=== PATIENT | male | born 1970 | race Caucasian/White ===

== ENCOUNTER 2020-11-19 16:09 | Outpatient (CLI) | payer OTHER, SELFPAY ==
--- NOTE | 2020-11-19 16:33 | XR_ITS ---
WS: [id number] Chest 2 views, 11/19/2020 Clinical Data: Shortness of breath Comparison: PA and lateral chest, 09/02/2014. Findings: No nodules, masses or effusions are seen. The heart is normal. The pulmonary vascularity is not increased. No pneumonia or pneumothorax is seen. XR/XR chest 2V* [id number] Impression: Negative chest.
[2020-11-19 17:01] LABS: Basophils # 0.1 10^3/uL (0.0-0.1); Eosinophils # 0.3 10^3/uL (0.0-0.8); Eosinophils % 3.4 %; Hematocrit 45.4 % (42.0-52.0); Hemoglobin 14.9 g/dL (11.7-16.6); Lymphocytes # 2.1 10^3/uL (0.8-4.8); Mean Corpuscular HGB Conc 32.8 g/dL (30.0-36.0); Mean Corpuscular Hemoglobin 28.5 pg (28.0-34.0); Mean Platelet Volume 10.1 fL (7.4-10.4); Monocytes % 10.3 %; Neutrophils # 6.21 10^3/uL (1.8-7.7); Neutrophils % 63.4 %; Nucleated Red Blood Cells % 0 %; Platelet Count 280 10^3/cmm (130-400); Red Blood Count 5.22 10^6/uL (4.1-5.3); Red Cell Distribution Width 13.2 % (12.1-15.1); White Blood Count 9.8 10^3/uL (4.0-10.0)
[2020-11-21 17:33] LABS: Alternaria Alternata (M6) Ige <0.10 kU/L; Alternaria Class 0; Bermuda Class 0; Bermuda Grass (G2) Ige <0.10 kU/L; Cat Dander (E1) Ige <0.10 kU/L; Cat Dander Class 0; Common Ragweed (Short) (W1) Ig <0.10 kU/L; D. Farinae Class 0; Dermatophagoides Class 0; Dermatophagoides Farinae (D2) <0.10 kU/L; Dermatophagoides Pteronyssinus <0.10 kU/L; Dog Dander (E5) Ige <0.10 kU/L; Dog Dander Class 0; Elm (T8) Ige <0.10 kU/L; Elm Class 0; English Plantain (W9) Ige <0.10 kU/L; English Plantain Class 0; House Dust (Greer) (H1) Ige <0.10 kU/L; House Dust (Hollister- Stier) <0.10 kU/L; House Dust Class 0; Immunoglobulin E 53 kU/L (<OR=114); Immunoglobulin E 57 kU/L (<OR=114); Johnson Grass (G10) Ige <0.10 kU/L; Johnson Grass Cl 0; June Grass Class 0; June Grass(Kentucky Blue) (G8) <0.10 kU/L; Lamb'S Quarters (Goose Foot) <0.10 kU/L; Lamb'S Quarters Class 0; Maple (Box Elder) (T1) Ige <0.10 kU/L; Maple Class 0; Meadow Fescue (G4) Ige <0.10 kU/L; Meadow Fescue Class 0; Mucor Racemosus Class 0; Oak (T7) Ige <0.10 kU/L; Oak Class 0; Orchard Grass (Cocksfoot) (G3) <0.10 kU/L; Penicillium Class 0; Penicillium Notatum (M1) Ige <0.10 kU/L; Perennial Rye Grass (G5) Ige <0.10 kU/L; Perennial Rye Grass Class 0; Ragweeed Class 0; Rough Marsh Elder (W16) Ige <0.10 kU/L; Rough Marsh Elder Class 0; Sweet Vernal Class 0; Sweet Vernal Grass (G1) Ige <0.10 kU/L; Timothy Grass (G6) Ige <0.10 kU/L; Timothy Grass Class 0
[2020-11-27 09:22] LABS: Aspergillus Fumigatus, Igg Ab, 15.2 mg/L (<=102)
== END 2020-11-19 16:10 | disposition home or self-care (01) ==
PROVIDERS: PCP Nurse Practitioner Family; Visit Provider Internal Medicine Critical Care Medicine
DX: R06.02 Shortness of breath (principal)
CPT/HCPCS: 36415; 71046; 82785; 85025; 86003

== ENCOUNTER → 2020-11-25 11:20 | Outpatient (BNVA) | payer OTHER, SELFPAY | PROVIDERS: PCP Nurse Practitioner Family; Visit Provider Internal Medicine Critical Care Medicine | DX: J45.909 Unspecified asthma, uncomplicated (principal); Z20.822 Contact with and (suspected) exposure to COVID-19 | CPT/HCPCS: 87635 ==

== ENCOUNTER 2020-11-27 06:49 | Outpatient (CLI) | payer OTHER, SELFPAY ==
--- NOTE | 2020-11-27 08:59 | PFTS_ITS ---
Date of Study:11/27/20 Date of Dictation: 11/28/2020 MECHANICS: Pre bronchodilator Forced vital capacity (FVC) is normal.. Pre bronchodilator Forced expiratory volume in one second (FEV1) is normal. FEV1/FVC is normal. Postbronchodilator study not performed FLOW VOLUME LOOP:normal LUNG VOLUMES: Total lung capacity (TLC) is normal. Residual volume (RV) is mildly reduced 79% DIFFUSING CAPACITY FOR CARBON MONOXIDE: normal . INTERPRETATION: The pre bronchodilator spirometry is normal and no postbronchodilator study to check for airway responsiveness. There is mild restriction on lung volumes. There is normal gas transfer. Clinical correlation recommended. MTDD
== END 2020-11-27 06:50 | disposition home or self-care (01) ==
PROVIDERS: PCP Nurse Practitioner Family; Visit Provider Internal Medicine Critical Care Medicine
DX: J45.909 Unspecified asthma, uncomplicated (principal)
CPT/HCPCS: 94010; 94726; 94729

== ENCOUNTER → 2021-04-20 13:27 | Outpatient (BNVA) | payer OTHER, SELFPAY | PROVIDERS: PCP Nurse Practitioner Family; Referring Provider Nurse Practitioner; Visit Provider Specialist | DX: M77.8 Other enthesopathies, not elsewhere classified (principal); S60.551A Superficial foreign body of right hand, initial encounter; X58.XXXA Exposure to other specified factors, initial encounter | CPT/HCPCS: 73130 ==

== ENCOUNTER 2023-03-16 05:49 | Day surgery (SDC) | payer OTHER, SELFPAY ==
[2023-03-16 06:11] VITALS: BMI 43.7
[2023-03-16 06:19] VITALS: BP 161/127; PULSE 105; RESP 18; TEMP 36.6; O2SAT 94
[2023-03-16] MEDS: sodium chloride 0.9% 1,000 ML 30 ML IV (06:32)
[2023-03-16 06:36] LABS: Glucose Point of Care 207 mg/dL (70-110)
--- NOTE | 2023-03-16 06:53 | P.ANESASSM_ITS ---
Pre-Anesthetic Assessment Height/Weight: Height 1.91 m Weight 158.757 kg Temp Pulse Resp BP Pulse Ox O2 Del Method 97.8 F 105 H 18 161/127 94 Room Air 03/16/23 06:19 03/16/23 06:19 03/16/23 06:19 03/16/23 06:19 03/16/23 06:19 03/16/23 06:19 Preop Diagnosis: screening Operation Date: 03/16/23 07:00 Proposed Procedures p Colonoscopy 71252,Z12.11(Not Applicable) - Roge Toledo, DO Was Beta Kimberley taken within 24 hours: N/A Was Clonidine taken within 24 hours: N/A Last intake: Intake Last Liquid Date 03/15/23 Last Liquid Time 22:00 Last Solid Date 03/14/23 Last Solid Time 20:00 Social No alcohol and No tobacco Exam alert, oriented x 3, clear to auscultation bilaterally and regular rate & rhythm Airway Submandibular: within normal limits Cervical ROM: within normal limits Mallampati: Class II Comments: Comments: very poor dentition History/ROS No significant history except as noted and No significant complaints Pulmonary Sleep Apnea CV/HEM Hypertension None reported Hepatic None reported GI Gastroesophageal Reflux Disease Metabolic Diabetes Mellitus and Morbid Obesity [facility] [place] None reported Neuropsych None reported Anesthetic Plan ASA status: 3 Anesthesia: Anesthesia Evaluation and MAC Risk of > 500 ml blood loss (7ml/kg in children): Yes, adequate IV access and fluids planned Medications/Allergies Home Medications Medication Instructions Recorded Confirmed Last Taken Type meloxicam 15 mg tablet 15 mg PO DAILY 07/25/19 03/16/23 03/14/23 History metformin 500 mg tablet,extended 1,000 mg PO BEDTIME 07/25/19 03/14/23 03/14/23 History release 24 hr (Glucophage XR) tizanidine 4 mg capsule (Zanaflex) 4 mg PO Q4H PRN Spasms 07/25/19 03/14/23 History hydrochlorothiazide 25 mg tablet 25 mg PO DAILY 11/18/20 03/16/23 03/15/23 History magnesium oxide 800 mg PO DAILY 11/18/20 03/16/23 03/15/23 History albuterol sulfate 90 mcg/actuation 2 puff inhalation Q6H PRN 02/17/21 03/16/23 Unknown Rx aerosol inhaler (ProAir HFA) shortness of breath or wheezing #8.5 grams montelukast 10 mg tablet 10 mg PO DAILY #90 tabs 02/17/21 03/16/23 03/15/23 Rx (Singulair) garlic 500 mg capsule 500 mg PO DAILY 04/20/21 03/16/23 03/15/23 History fluticasone propionate 50 1 spray intranasal BID 30 days #16 12/04/21 03/16/23 Unknown Rx mcg/actuation nasal grams spray,suspension (Flonase Allergy Relief) fluticasone 250 mcg-salmeterol 50 1 inh inhalation BID 30 days #60 ea 12/17/21 03/16/23 Unknown Rx mcg/dose blistr powdr for inhalation (Advair Diskus) amlodipine 5 mg tablet 5 mg PO DAILY 03/14/23 03/16/23 03/16/23 History glyburide 2.5 mg tablet 2.5 mg PO DAILY 03/14/23 03/16/23 03/15/23 History lisinopril 40 mg tablet 40 mg PO DAILY 03/14/23 03/16/23 03/15/23 History naproxen 500 mg tablet 500 mg PO BID PRN Pain 03/14/23 03/16/23 03/14/23 History semaglutide 1 mg/dose (4 mg/3 mL) 1 mg SUBCUT .WEEKLY 03/14/23 03/14/23 02/24/23 History subcutaneous pen injector (Ozempic) Allergies Allergy/AdvReac Type Severity Reaction Status Date / Time No Known Allergies Allergy Verified 03/14/23 14:39 Current Medications Generic Name Dose Route Start Last Admin Trade Name Freq PRN Reason Stop Dose Admin Sodium Chloride 1,000 mls @ 30 mls/hr 03/16/23 06:15 03/16/23 06:32 Sodium Chloride 0.9% IV 03/17/23 06:14 30 mls/hr .Q24H MALICK Administration PFSH Anesthesia Medical History 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 Family/Other Alpha 1-antitrypsin PiMS phenotype Social History Smoking and tobacco/nicotine status: never used tobacco/nicotine Alcohol intake: current Alcohol intake frequency: holidays/special occasions only Substance/Drug Use: never Lives independently: Yes Household members: spouse Marital status: Current occupational status: employed Do you think of yourself as: Straight/Heterosexual Current gender identity: Male Data Anesthesia Cardiac Studies: No Data to Display
--- NOTE | 2023-03-16 06:56 | PM.HP ---
Providers/Chief Complaint Primary Care Provider: KELI Roth Chief Complaint: Z12.11 History of Present Illness Travis Dozier JR is a 52 year old male Review of Systems General: Reports: 10 or more systems reviewed and unremarkable except in HPI and below Medications/Allergies Home Medications Medication Instructions Recorded Confirmed Last Taken Type meloxicam 15 mg tablet 15 mg PO DAILY 07/25/19 03/16/23 03/14/23 History metformin 500 mg tablet,extended 1,000 mg PO BEDTIME 07/25/19 03/14/23 03/14/23 History release 24 hr (Glucophage XR) tizanidine 4 mg capsule (Zanaflex) 4 mg PO Q4H PRN Spasms 07/25/19 03/14/23 03/14/23 History hydrochlorothiazide 25 mg tablet 25 mg PO DAILY 11/18/20 03/16/23 03/15/23 History magnesium oxide 800 mg PO DAILY 11/18/20 03/16/23 03/15/23 History albuterol sulfate 90 mcg/actuation 2 puff inhalation Q6H PRN 02/17/21 03/16/23 Unknown Rx aerosol inhaler (ProAir HFA) shortness of breath or wheezing #8.5 grams montelukast 10 mg tablet 10 mg PO DAILY #90 tabs 02/17/21 03/16/23 03/15/23 Rx (Singulair) garlic 500 mg capsule 500 mg PO DAILY 04/20/21 03/16/23 03/15/23 History fluticasone propionate 50 1 spray intranasal BID 30 days #16 12/04/21 03/16/23 Unknown Rx mcg/actuation nasal grams spray,suspension (Flonase Allergy Relief) fluticasone 250 mcg-salmeterol 50 1 inh inhalation BID 30 days #60 ea 12/17/21 03/16/23 Unknown Rx mcg/dose blistr powdr for inhalation (Advair Diskus) amlodipine 5 mg tablet 5 mg PO DAILY 03/14/23 03/16/23 03/16/23 History glyburide 2.5 mg tablet 2.5 mg PO DAILY 03/14/23 03/16/23 03/15/23 History lisinopril 40 mg tablet 40 mg PO DAILY 03/14/23 03/16/23 03/15/23 History naproxen 500 mg tablet 500 mg PO BID PRN Pain 03/14/23 03/16/23 03/14/23 History semaglutide 1 mg/dose (4 mg/3 mL) 1 mg SUBCUT .WEEKLY 03/14/23 03/14/23 02/24/23 History subcutaneous pen injector (Ozempic) Allergies Allergy/AdvReac Type Severity Reaction Status Date / Time No Known Allergies Allergy Verified 03/14/23 14:39 PFSH Acute PFSH: Medical History Kewch-6-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 Family/Other Alpha 1-antitrypsin PiMS phenotype Social History Smoking and tobacco/nicotine status: never used tobacco/nicotine Alcohol intake: current Alcohol intake frequency: holidays/special occasions only Substance/Drug Use: never Lives independently: Yes Household members: spouse Marital status: Current occupational status: employed Do you think of yourself as: Straight/Heterosexual Current gender identity: Male Vitals/I&O/Wt Last Vital Signs Temp 97.8 F 03/16/23 06:19 Pulse 105 H 03/16/23 06:19 Resp 18 03/16/23 06:19 BP 161/127 03/16/23 06:19 Pulse Ox 94 03/16/23 06:19 O2 Del Method Room Air 03/16/23 06:19 Weight last 48 hrs Weight 350 lb A&P Assessment and plan (1) Colon cancer screening: Plan Colonoscopy Attestations Medical Necessity Statement*: Home Coding Level of Care Code Acute Code for Chg Fwd Diagnoses Colon cancer screening Z12.11
[2023-03-16 07:30] VITALS: BP 147/111; PULSE 88; RESP 20; TEMP 36.4; O2SAT 92
[2023-03-16 08:11] VITALS: BP 154/96; PULSE 80; RESP 18; O2SAT 92
--- NOTE | 2023-03-16 13:28 | ANE.PACU2 ---
Inpatient post-anesthesia follow up: Airway intact: Yes Vital signs: Temperature 97.6 F Pulse Rate 80 Respiratory Rate 18 Blood Pressure 154/96 Pulse Oximetry 92 Oxygen Delivery Me thod Room Air Oxygen Flow Rate Fraction of Inspir ed Oxygen Hydration adequate: Yes Nausea and vomiting: No Pain level: 2 Mental status: Baseline
== END 2023-03-16 08:20 | disposition home or self-care (01) ==
PROVIDERS: PCP Nurse Practitioner Family; Visit Provider Surgery
PROC: 0DJD8ZZ Inspection of Lower Intestinal Tract, Via Natural or Artificial Opening Endoscopic (ICD-10-PCS; CPT 45378; principal; 2023-03-16 07:00)
DX: Z12.11 Encounter for screening for malignant neoplasm of colon (principal); K57.30 Diverticulosis of large intestine without perforation or abscess without bleeding; D12.5 Benign neoplasm of sigmoid colon; G47.30 Sleep apnea, unspecified; I10 Essential (primary) hypertension; K21.9 Gastro-esophageal reflux disease without esophagitis; E11.9 Type 2 diabetes mellitus without complications; E66.01 Morbid (severe) obesity due to excess calories; Z68.41 Body mass index [BMI] 40.0-44.9, adult; Z79.84 Long term (current) use of oral hypoglycemic drugs
CPT/HCPCS: 36416; 45385; 82962; 88305; J2250; J2704; J7030

== ENCOUNTER 2023-05-06 14:20 | Outpatient (CLI) | payer OTHER, SELFPAY ==
--- NOTE | 2023-05-06 14:24 | MR_ITS ---
WS: [id number] MRI RIGHT KNEE NONCONTRAST TECHNIQUE: Axial PD, coronal PD fat sat, coronal PD, sagittal PD, and sagittal PD fat-sat images obta ined. CLINICAL INFORMATION: R KNEE PAIN COMPARISON: None. FINDINGS: Distal quadriceps and patella tendons are intact. Normal ACL and PCL. Suggestion of a tiny intrasubst ance tear in the proximal ACL with a small amount of fluid. No significant joint effusion. Small amou nt of prepatellar soft tissue edema. No acute appearing meniscal tears. Chronic intrasubstance signal abnormality involving the medial and lateral meniscus. Grade 2-3 chondromalacia patella. No subchondral edema. Normal medial and lateral patellar retinaculu m. Small subpatellar effusion. Normal medial and lateral collateral ligaments. Normal popliteal fossa. IMPRESSION: 1. Mild tricompartmental arthritis. 2. ACL and PCL appear intact. Suggestion of a tiny intrasubstance tear in the proximal ACL. 3. No acute appearing meniscal tears. Chronic intrasubstance signal normality involving the medial a nd lateral meniscus. 4. Moderate chondromalacia patella. 5. Small suprasellar effusion. 6. Medial and lateral collateral ligaments appear intact. Outbridge grading: grade III: partial-thickness cartilage loss with focal ulceration
== END 2023-05-06 14:21 | disposition home or self-care (01) ==
PROVIDERS: PCP Nurse Practitioner Family; Visit Provider Nurse Practitioner Family
DX: M17.11 Unilateral primary osteoarthritis, right knee (principal); M22.41 Chondromalacia patellae, right knee
CPT/HCPCS: 73721

== ENCOUNTER → 2023-05-11 13:46 | Outpatient (BNVA) | payer OTHER, SELFPAY | PROVIDERS: PCP Nurse Practitioner Family; Visit Provider Nurse Practitioner | DX: M17.11 Unilateral primary osteoarthritis, right knee; M23.51 Chronic instability of knee, right knee; Z68.42 Body mass index [BMI] 45.0-49.9, adult | CPT/HCPCS: 73560; 73565 ==

== ENCOUNTER 2024-01-22 08:46 | Emergency (ER) | payer OTHER, SELFPAY ==
--- NOTE | 2024-01-22 08:53 | USR_ITS ---
PROCEDURE INFORMATION: Exam: US Duplex Right Lower Extremity Veins, Limited Exam date and time: 01/22/2024 9:47 AM Age: 53 years old Clinical indication: Edema, localized; Lower extremity, right; Additional info: Leg swelling TECHNIQUE: Imaging protocol: Real-time duplex ultrasound of the right extremity with 2-D lopez scale, color Doppler flow and spectral waveform analysis including responses to compression and other maneuvers (when performed) with image documentation. Limited exam was focused on the right lower extremity veins. COMPARISON: US ROR venous duplex LE RT 09/10/2021 2:27 PM FINDINGS: Right deep veins: The common femoral, femoral, proximal profunda femoral and popliteal veins are patent without thrombus. Normal Doppler waveforms and color flow Doppler signal. Normal compressibility and/or augmentation response. Superficial veins: The greater saphenous vein at the saphenofemoral junction is patent and compressible without thrombus. The greater saphenous below the level of the knee contains echogenic material and is noncompressible. There are superficial venous varicosities in the posterior lower leg , presumably at the level of the calf, which likewise contain echogenic material and are noncompressible. These findings are compatible with superficial thrombophlebitis. Soft tissues: No acute soft tissue abnormality. US/[place] [id number] IMPRESSION: 1. No deep vein thrombosis. 2. Superficial thrombophlebitis.
[2024-01-22 09:09] VITALS: BP 175/105; PULSE 71; RESP 16; TEMP 36.7; O2SAT 95; BMI 48.8
--- NOTE | 2024-01-22 09:21 | ED_ITS ---
HPI - Extremity Problem 2 General: Chief complaint: Extremity Problem,Nontraumatic Stated complaint: Right leg swelling/redness Time Seen by Provider: 01/22/24 08:53 Source: patient Mode of arrival: ambulatory Limitations: no limitations History of Present Illness: 53-year-old male who has had a history o f superficial thrombophlebitis in the past has a history of varicose veins states that he has had some swelling and noticed some nausea and redness to his right leg states has had tenderness to touch. He denies any fevers. He denies any worse improving factors Associated symptoms: Deny chest pain, fever(s) or rash Related Data Home Medications Medication Instructions Recorded Confirmed metformin 500 mg tablet,extended 1,000 mg PO BEDTIME 07/25/19 06/30/23 release 24 hr (Glucophage XR) tizanidine 4 mg capsule (Zanaflex) 4 mg PO Q4H PRN Spasms 07/25/19 06/30/23 hydrochlorothiazide 25 mg tablet 25 mg PO DAILY 11/18/20 06/30/23 magnesium oxide 800 mg PO DAILY 11/18/20 06/30/23 garlic 500 mg capsule 500 mg PO DAILY 04/20/21 06/30/23 amlodipine 5 mg tablet 5 mg PO DAILY 03/14/23 06/30/23 glyburide 2.5 mg tablet 2.5 mg PO DAILY 03/14/23 06/30/23 lisinopril 40 mg tablet 40 mg PO DAILY 03/14/23 06/30/23 naproxen 500 mg tablet 500 mg PO BID PRN Pain 03/14/23 06/30/23 semaglutide 1 mg/dose (4 mg/3 mL) 1 mg SUBCUT .WEEKLY 03/14/23 06/30/23 subcutaneous pen injector (Ozempic) Previous Rx's Medication Instructions Recorded albuterol sulfate 90 mcg/actuation 2 puff inhalation Q6H PRN 02/17/21 aerosol inhaler (ProAir HFA) shortness of breath or wheezing #8.5 grams montelukast 10 mg tablet 10 mg PO DAILY #90 tabs 02/17/21 (Singulair) fluticasone propionate 50 1 spray intranasal BID 30 days #16 12/04/21 mcg/actuation nasal grams spray,suspension (Flonase Allergy Relief) fluticasone 250 mcg-salmeterol 50 1 inh inhalation BID 30 days #60 ea 12/17/21 mcg/dose blistr powdr for inhalation (Advair Diskus) celecoxib 100 mg capsule (Celebrex) 100 mg PO BID #60 caps 05/11/23 hinged knee brace #1 ea 05/11/23 diclofenac sodium 1 % topical gel 4 g topical QID #100 grams 06/30/23 Allergies Allergy/AdvReac Type Severity Reaction Status Date / Time No Known Allergies Allergy Verified 06/30/23 14:36 Review of Systems 2 Const: Denies: fever(s), chills, body aches or change in appetite ENMT: Denies: throat pain or dental pain Card: Denies: chest pain Resp: Denies: dyspnea GI: Denies: abdominal pain, nausea, vomiting or diarrhea Musc: Reports: extremity pain and extremity swelling; Denies: neck pain or back pain Skin/Breast: Denies: rash Neuro: Denies: headache(s) PFSH ED 2 PFSH: Medical History Recurrent right knee instability BMI 45.0-49.9, adult Primary osteoarthritis of right knee Right anterior knee pain Essential (primary) hypertension Type 2 diabetes mellitus Family history of alpha 1 antitrypsin deficiency Rmoik-2-kaqnyxwasuy deficiency carrier Family History Mother Chronic kidney disease (CKD) Father Alpha 1-antitrypsin PiMS phenotype Father No problems noted. Family/Other Alpha 1-antitrypsin PiMS phenotype Social History Smoking and tobacco/nicotine status: never used tobacco/nicotine Alcohol intake: current Alcohol intake frequency: holidays/special occasions only Substance/Drug Use: never Lives independently: Yes Household members: spouse Marital status: Current occupational status: employed Do you think of yourself as: Straight/Heterosexual Current gender identity: Male Physical Exam 2 Const: COMMON NORMALS: no acute distress, patient oriented x3 and healthy appearing HENMT: COMMON NORMALS: normocephalic and atraumatic HEAD & SCALP: n ormocephalic and atraumatic Neck/C-Spine: COMMON NORMALS: full ROM and supple Chest: COMMONS NORMALS: normal inspection of the chest Resp: COMMON NORMALS: normal respiratory effort Cardio: COMMON NORMALS: regular rate, regular rhythm and No murmurs present (Cardio) RATE: regular rate RHYTHM: regular rhythm Extremity: COMMON NORMALS: normal to inspection Neuro: COMMON NORMALS: patient oriented x3, moves all extremities and no focal motor deficits Skin: COMMON NORMALS: no rashes or lesions noted GENERAL SKIN EXAM: no rashes or lesions noted Course 2 Vital Signs: Vital signs: Vital Signs Temperature 98.1 F 01/22/24 09:09 Pulse Rate 77 01/22/24 09:41 Respiratory Rate 16 01/22/24 09:09 Blood Pressure 142/101 01/22/24 09:41 Pulse Oximetry 95 01/22/24 09:41 Oxygen Delivery Me thod Room Air 01/22/24 09:41 MDM - Extremity (Nontraumatic) Medical Decision Making Patient presents with some painful multiple his leg ultrasound shows a superficial thrombophlebitis no signs of DVT he is doing warm compresses take ibuprofen follow-up with PCP return if worsening he understands agrees to plan Medical Records I reviewed the patient's medical records. Lab Data I reviewed the patient's lab results. 01/22/24 09:34 Laboratory Results WBC 7.45 10^3/uL (3.29-11.43) 01/22/24 09:34 RBC 5.22 10^6/uL (3.85-5.65) 01/22/24 09:34 Hgb 14.80 g/dL (11.27-16.99) 01/22/24 09:34 Hct 45.0 % (37-53) 01/22/24 09:34 MCV 86.2 fl (82-101) 01/22/24 09:34 MCH 28.4 pg (27-33) 01/22/24 09:34 MCHC 32.9 g/dL (30-55) 01/22/24 09:34 RDW 13.7 % (12.1-15.1) 01/22/24 09:34 Plt Count 279 10^3/cmm (157-399) 01/22/24 09:34 MPV 10.2 fL (7.4-10.4) 01/22/24 09:34 Neut % (Auto) 62.4 % 01/22/24 09:34 Lymph % (Auto) 22.6 % 01/22/24 09:34 [place] % (Auto) 8.5 % 01/22/24 09:34 Eos % (Auto) 4.4 % 01/22/24 09:34 Baso % (Auto) 1.2 % 01/22/24 09:34 Neut # (Auto) 4.65 10^3/uL (1.8-7.7) 01/22/24 09:34 Lymph # (Auto) 1.7 10^3/uL (0.8-4.8) 01/22/24 09:34 [place] # (Auto) 0.6 10^3/uL (0.2-0.9) 01/22/24 09:34 Eos # (Auto) 0.3 10^3/uL (0.0-0.8) 01/22/24 09:34 Baso # (Auto) 0.1 10^3/uL (0.0-0.1) 01/22/24 09:34 Nucleated RBC % (auto) 0 % 01/22/24 09:34 Nucleated RBCs # 0.0 /100WBC 01/22/24 09:34 All radiology interpretation(s) finalized by discharge Discharge Plan Discharge Patient Disposition: Home Health Service Clinical Impression: Superficial thrombophlebitis Condition: Stable Prescriptions: No Action tizanidine [Zanaflex] 4 mg capsule 4 mg PO Q4H PRN (Reason: Spasms) metformin [Glucophage XR] 500 mg tablet extended release 24 hr 1,000 mg PO BEDTIME hydrochlorothiazide 25 mg tablet 25 mg PO DAILY magnesium oxide 400 mg magnesium capsule 800 mg PO DAILY albuterol sulfate [ProAir HFA] 90 mcg/actuation HFA aerosol inhaler 2 puff INHALATION Q6H PRN (Reason: shortness of breath or wheezing) Qty: 8.5 6RF montelukast [Singulair] 10 mg tablet 10 mg PO DAILY Qty: 90 2RF garlic 500 mg capsule 500 mg PO DAILY (DME) hinged knee brace See Rx Instructions .Route .MEDSUPPLY Qty: 1 0RF Rx Instructions: As directed celecoxib [Celebrex] 100 mg capsule 100 mg PO BID Qty: 60 2RF Rx Instructions: Take twice Daily fluticasone propion-salmeterol [Advair Diskus] 250-50 mcg/dose blister with device 1 inh inhalation BID 30 Days Qty: 60 6RF diclofenac sodium 1 % gel 4 g topical QID Qty: 100 0RF Rx Instructions: apply to single knee, ankle, foot; for foot includes sole/toes/top of foot fluticasone propionate [Flonase Allergy Relief] 50 mcg/actuation spray,suspension 1 spray intranasal BID 30 Days Qty: 16 6RF Rx Instructions: administer into each nostril glyburide 2.5 mg tablet 2.5 mg PO DAILY amlodipine 5 mg tablet 5 mg PO DAILY lisinopril 40 mg tablet 40 mg PO DAILY naproxen 500 mg tablet 500 mg PO BID PRN (Reason: Pain) Hold Instructions: Resume on 03/19/23. Ozempic 1 mg/dose (4 mg/3 mL) pen injector 1 mg SUBCUT .WEEKLY Discharge Orders: Discharge ED (Routine); Ordered 01/22/24 Ordered By: Marvel Martínez Referrals: Maday Shannon FNP [Primary Care Provider] - 4-7 days Discharge Diet: Advance as tolerated Discharge Activity: Resume usual activity Patient Instructions: Superficial Thrombophlebitis (ED) Coding Level of Care Code ED Esthetician/Spa Coordinator for Elvi Macias
[2024-01-22 09:38] LABS: Basophils # 0.1 10^3/uL (0.0-0.1); Basophils % 1.2 %; Eosinophils # 0.3 10^3/uL (0.0-0.8); Eosinophils % 4.4 %; Lymphocytes # 1.7 10^3/uL (0.8-4.8); Lymphocytes % 22.6 %; Mean Corpuscular HGB Conc 32.9 g/dL (30-55); Mean Corpuscular Hemoglobin 28.4 pg (27-33); Mean Corpuscular Volume 86.2 fl (82-101); Mean Platelet Volume 10.2 fL (7.4-10.4); Monocytes # 0.6 10^3/uL (0.2-0.9); Monocytes % 8.5 %; Neutrophils # 4.65 10^3/uL (1.8-7.7); Neutrophils % 62.4 %; Nucleated Red Blood Cells % 0 %; Platelet Count 279 10^3/cmm (157-399); Red Blood Count 5.22 10^6/uL (3.85-5.65); Red Cell Distribution Width 13.7 % (12.1-15.1); White Blood Count 7.45 10^3/uL (3.29-11.43)
[2024-01-22 09:41] VITALS: BP 142/101; PULSE 77; O2SAT 95
== END 2024-01-22 10:19 | disposition home health service (06) ==
PROVIDERS: Emergency Provider Emergency Medicine; PCP Nurse Practitioner Family
DX: I80.01 Phlebitis and thrombophlebitis of superficial vessels of right lower extremity (principal); I10 Essential (primary) hypertension; E11.9 Type 2 diabetes mellitus without complications; Z79.84 Long term (current) use of oral hypoglycemic drugs; Z79.85 Long-term (current) use of injectable non-insulin antidiabetic drugs
CPT/HCPCS: 36415; 85025; 93971; 99284

== ENCOUNTER → 2024-02-13 13:58 | Outpatient (BNVA) | payer OTHER, SELFPAY | PROVIDERS: PCP Nurse Practitioner Family; Visit Provider Nurse Practitioner | DX: M25.561 Pain in right knee (principal); M25.562 Pain in left knee | CPT/HCPCS: 73560; 73565 ==

== ENCOUNTER 2024-03-01 14:11 | Outpatient (RCR) | payer OTHER, SELFPAY | END 2024-03-22 23:59 | disposition home or self-care (01) | LOC: SPT 14:11 | PROVIDERS: PCP Nurse Practitioner Family; Visit Provider Nurse Practitioner | DX: M17.11 Unilateral primary osteoarthritis, right knee (principal) | CPT/HCPCS: 97161 ==

== ENCOUNTER 2024-03-23 06:00 | Outpatient (RCR) | payer OTHER, SELFPAY | END 2024-04-21 23:59 | disposition home or self-care (01) | LOC: SPT 06:00 | PROVIDERS: PCP Nurse Practitioner Family; Visit Provider Nurse Practitioner | DX: M17.11 Unilateral primary osteoarthritis, right knee (principal) | CPT/HCPCS: 97110 ==

== ENCOUNTER 2024-04-22 07:00 | Outpatient (RCR) | payer OTHER, SELFPAY | END 2024-05-22 23:59 | disposition home or self-care (01) | LOC: SPT 07:00 | PROVIDERS: PCP Nurse Practitioner Family; Visit Provider Nurse Practitioner | DX: M17.11 Unilateral primary osteoarthritis, right knee (principal) | CPT/HCPCS: 97110 ==

== ENCOUNTER 2024-05-23 06:00 | Outpatient (RCR) | payer OTHER, SELFPAY | END 2024-06-06 23:59 | disposition home or self-care (01) | LOC: SPT 06:00 | PROVIDERS: PCP Nurse Practitioner Family; Visit Provider Nurse Practitioner | DX: M17.11 Unilateral primary osteoarthritis, right knee (principal) | CPT/HCPCS: 97110 ==

== ENCOUNTER → 2024-06-18 14:00 | Outpatient (BNVA) | payer OTHER, SELFPAY | PROVIDERS: PCP Nurse Practitioner Family; Visit Provider Nurse Practitioner | DX: S83.207A Unspecified tear of unspecified meniscus, current injury, left knee, initial encounter; M23.51 Chronic instability of knee, right knee; X58.XXXA Exposure to other specified factors, initial encounter | CPT/HCPCS: 73560; 73565 ==

== ENCOUNTER 2024-09-04 05:49 | Day surgery (SDC) | payer BC, SELFPAY ==
[2024-09-04 06:09] VITALS: BMI 47.5
[2024-09-04 06:20] LABS: Glucose Point of Care 251 mg/dL (70-110)
[2024-09-04] MEDS: sodium chloride 0.9% 500 ML 30 ML IV (06:22)
--- NOTE | 2024-09-04 06:47 | ANES.PREANE2 ---
Pre-Anesthetic Assessment Height/Weight: Height 1.83 m Weight 158.757 kg Preop Diagnosis: Screening Operation Date: 09/04/24 07:00 Proposed Procedures p Colonoscopy 72638 G0121 Z12.11(Not Applicable) - Carlos Danielle MD Was Beta Kimberley taken within 24 hours: N/A Was Clonidine taken within 24 hours: N/A Last intake: Intake Last Liquid Date 09/03/24 Last Liquid Time 19:00 Last Solid Date 09/02/24 Last Solid Time 20:00 Social No alcohol and No tobacco Exam alert, oriented x 3, clear to auscultation bilaterally and regular rate & rhythm Airway Submandibular: within normal limits Cervical ROM: within normal limits Mallampati: Class II Dentition: full History/ROS No significant history except as noted and No significant complaints Pulmonary Asthma and Sleep Apnea CV/HEM Hypertension None reported Hepatic None reported GI Gastroesophageal Reflux Disease Metabolic Diabetes Mellitus and Morbid Obesity Musc/skel Lower Back Pain and Osteoarthritis/DJD Neuropsych None reported Anesthetic Plan ASA status: 3 Anesthesia: Anesthesia Evaluation and MAC Risk of > 500 ml blood loss (7ml/kg in children): No Medications/Allergies Home Medications ?Medication ?Instructions ?Recorded ?Confirmed ?Last Taken ?Type metformin 500 mg tablet,extended 1,000 mg PO BEDTIME 07/25/19 08/29/24 08/28/24 History release 24 hr (Glucophage XR) tizanidine 4 mg capsule (Zanaflex) 4 mg PO Q4H PRN Spasms 07/25/19 08/29/24 08/28/24 History hydrochlorothiazide 25 mg tablet 25 mg PO DAILY 11/18/20 08/29/24 08/29/24 History magnesium oxide 800 mg PO DAILY 11/18/20 08/29/24 08/29/24 History albuterol sulfate 90 mcg/actuation 2 puff inhalation Q6H PRN 02/17/21 08/29/24 Unknown Rx aerosol inhaler (ProAir HFA) shortness of breath or wheezing #8.5 grams montelukast 10 mg tablet 10 mg PO DAILY #90 tabs 02/17/21 08/29/24 08/29/24 Rx (Singulair) garlic 500 mg capsule 500 mg PO DAILY 04/20/21 08/29/24 08/29/24 History amlodipine 5 mg tablet 5 mg PO DAILY 03/14/23 08/29/24 08/29/24 History glyburide 2.5 mg tablet 2.5 mg PO DAILY 03/14/23 08/29/24 08/29/24 History lisinopril 40 mg tablet 40 mg PO DAILY 03/14/23 08/29/24 08/29/24 History semaglutide 1 mg/dose (4 mg/3 mL) 1 mg SUBCUT .WEEKLY 03/14/23 08/29/24 02/24/23 History subcutaneous pen injector (Ozempic) celecoxib 100 mg capsule (Celebrex) 100 mg PO BID #60 caps 05/11/23 08/29/24 08/29/24 Rx rivaroxaban 20 mg tablet (Xarelto) 20 mg PO DAILY 08/27/24 08/29/24 08/29/24 History fluticasone propionate 50 1 spray intranasal BID PRN 08/29/24 08/29/24 08/29/24 History mcg/actuation nasal Congestion spray,suspension (Flonase Allergy Relief) Allergies Allergy/AdvReac Type Severity Reaction Status Date / Time adhesive Allergy ADR-Agitate Verified 08/29/24 11:55 d Current Medications Generic Name Dose Route Start Last Admin Trade Name Freq PRN Reason Stop Dose Admin Sodium Chloride 500 mls @ 30 mls/hr 09/04/24 06:15 09/04/24 06:22 Sodium Chloride 0.9% IV 30 mls/hr .[id number] MALICK Administration PFSH Anesthesia Medical History Left medial knee pain Recurrent right knee instability BMI 45.0-49.9, adult Primary osteoarthritis of right knee Right anterior knee pain Essential (primary) hypertension Type 2 diabetes mellitus Family history of alpha 1 antitrypsin deficiency Ykfyf-6-dsszafnlfmk deficiency carrier Family History Mother Chronic kidney disease (CKD) Father Alpha 1-antitrypsin PiMS phenotype Father No problems noted. Family/Other Alpha 1-antitrypsin PiMS phenotype Social History Smoking and tobacco/nicotine status: never used tobacco/nicotine Alcohol intake: current Alcohol intake frequency: holidays/special occasions only Substance/Drug Use: never Lives independently: Yes Household members: spouse Marital status: Current occupational status: employed Do you think of yourself as: Straight/Heterosexual Current gender identity: Male Data Anesthesia Cardiac Studies: No Data to Display
--- NOTE | 2024-09-04 07:06 | W.PM.OPSUD ---
Surgery/Procedure H&P Update DATE OF PROCEDURE: September 04, 2024 DATE H&P PERFORMED: 08/27/24 H&P UPDATE INFORMATION: I have reviewed H&P completed within last 30 days, I have examined patient prior to procedure and No changes to prior documentation PREOP DIAGNOSIS: Screening PLANNED PROCEDURE: Operation Date: 09/04/24 07:00 Proposed Procedures p Colonoscopy 38235 G0121 Z12.11(Not Applicable) - Carlos Danielle MD
[2024-09-04 07:38] VITALS: BP 165/99; PULSE 78; RESP 16; TEMP 36.2; O2SAT 94
[2024-09-04 07:41] VITALS: BP 109/93; PULSE 75; RESP 16; O2SAT 94
--- NOTE | 2024-09-04 12:31 | ANE.PACU2 ---
Inpatient post-anesthesia follow up: Vital signs: Temperature 97.1 F Pulse Rate 75 Respiratory Rate 16 Blood Pressure 109/93 Pulse Oximetry 94 Oxygen Delivery Me thod Room Air Oxygen Flow Rate Fraction of Inspir ed Oxygen Hydration adequate: Yes Nausea and vomiting: No Pain level: 1 Mental status: Baseline
== END 2024-09-04 08:03 | disposition home or self-care (01) ==
PROVIDERS: PCP Nurse Practitioner Family; Visit Provider Student in an Organized Health Care Education/Training Program
PROC: 0DJD8ZZ Inspection of Lower Intestinal Tract, Via Natural or Artificial Opening Endoscopic (ICD-10-PCS; CPT 45378; principal; 2024-09-04 07:00)
DX: K57.30 Diverticulosis of large intestine without perforation or abscess without bleeding (principal); R93.3 Abnormal findings on diagnostic imaging of other parts of digestive tract; I10 Essential (primary) hypertension; K21.9 Gastro-esophageal reflux disease without esophagitis; E11.9 Type 2 diabetes mellitus without complications; E66.01 Morbid (severe) obesity due to excess calories; Z68.42 Body mass index [BMI] 45.0-49.9, adult; Z79.01 Long term (current) use of anticoagulants; Z90.5 Acquired absence of kidney; Z79.899 Other long term (current) drug therapy; Z79.85 Long-term (current) use of injectable non-insulin antidiabetic drugs; Z79.84 Long term (current) use of oral hypoglycemic drugs; Z14.8 Genetic carrier of other disease; Z85.528 Personal history of other malignant neoplasm of kidney
CPT/HCPCS: 36416; 45378; 82962; J2003; J2704; J7040; J9999

== ENCOUNTER → 2025-04-30 13:55 | Outpatient (BNVA) | payer BC, MEDICAID, SELFPAY | PROVIDERS: Visit Provider Physician Assistant | DX: M17.11 Unilateral primary osteoarthritis, right knee (principal); M23.303 Other meniscus derangements, unspecified medial meniscus, right knee; M23.300 Other meniscus derangements, unspecified lateral meniscus, right knee | CPT/HCPCS: 73560; 73565 ==